=== PATIENT | female | born 1950 | race Caucasian/White ===

== ENCOUNTER 2017-12-02 06:07 | Day surgery (SDC) | payer BC, MEDICARE ==
[~2017-12-02] VITALS: Ht 167.6 cm; Wt 93.2 kg
[~2017-12-02 06:07] MED LIST: ADVAIR; ALBIPROI; ALEN70; ASPI81EC; BUPR150ER; BUPR150T2 PO; CALMAGZIN; CARI350 PO; CHRO200 PO; CLARITIN; COMBIVENT RESPIM4 GM INH; CRUTCH2 USE; DULO30; DULO60 PO; FISH OIL + D31 EACH PO; FLUSAL2505; FLUT.05NI; GLUCHON; GLUCHON PO; Glucosamine-Ch480 ML PO; Hair, Skin & N1 EACH PO; IBUP400 PO; IRON150C PO; KETAPROFEN; KETO200ER; LORA10 PO; LORA10ER; LORPSEER24 PO; MONT10T; MONT10T PO; MSM; MSM1000; MULVITMIND; Norco 10-325 T1 EACH; OMEP20ER; OMEP40CA12 PO; OMEPRAZOLE MAGN20 MG PO; PREG100 PO; PRILOSEC; PROACE100 PO; RALO60 PO; SINGULAIR; SUMA25; SUMA25 PO; SUMA6I; SUMA6I SC; TOCO400; VITAMIN D34000 UNIT PO; ZOLP5; ZOLP5 PO; [UNRECOGNIZED DRUG - OTHER]; [UNRECOGNIZED DRUG - OTHER]
[2018-08-16] MEDS ORDERED: BUPR150ER PO (09:18)
[2018-08-16] MEDS ORDERED: SITA100T2 PO (09:19)
[2018-08-16] MEDS ORDERED: RALO60 PO (09:19)
[2018-08-16] MEDS ORDERED: NAPR220 PO (09:20)
[2018-08-16] MEDS ORDERED: VAGIFEM10 MCG VAG (09:20)
[2018-08-16] MEDS ORDERED: ATOR40TA PO (09:20)
[2018-08-16] MEDS ORDERED: Norco 10-325 T1 EACH PO (09:21)
[2018-08-16] MEDS ORDERED: HYOS.125 PO (09:22)
== END 2017-12-02 09:43 | disposition home or self-care (01) ==
LOC: ORSCSDS 06:07
PROVIDERS: Orthopaedic Surgery
PROC: 0SBD4ZZ Excision of Left Knee Joint, Percutaneous Endoscopic Approach (ICD-10-PCS; principal; 2017-12-02 07:30)
DX: S83.242A Other tear of medial meniscus, current injury, left knee, initial encounter (principal); M71.22 Synovial cyst of popliteal space [Baker], left knee; E11.9 Type 2 diabetes mellitus without complications; I10 Essential (primary) hypertension; E78.5 Hyperlipidemia, unspecified; G47.33 Obstructive sleep apnea (adult) (pediatric); Z79.899 Other long term (current) drug therapy
CPT/HCPCS: J0171; J2250; J2405; J3010; J3370; J7050; J7120

== ENCOUNTER → 2017-12-27 | Outpatient (CLI) | payer OTHER, BC, MEDICARE ==
[~2017-12-27] MED LIST changes: +ASPI325EC PO; +ATOR20 PO; +ATOR40TA PO; +BUPR150ER PO; +HYOS.125 PO; +HYOS0.375T PO; +NAPR220 PO; +Norco 10-325 T1 EACH PO; +Percocet 5-3251 EACH PO; +SITA100T2 PO; +SOMA350 MG PO; +UBID10 PO; +VAGIFEM10 MCG VAG
[2017-12-28 05:33] LABS: HCV Non Reactive (NR)
== END | disposition home or self-care (01) ==
LOC: LAB EV 09:13
PROVIDERS: Physician Assistant
DX: Z20.9 Contact with and (suspected) exposure to unspecified communicable disease (principal)
CPT/HCPCS: 84460; 86706; 86803; 87340; 87389

== ENCOUNTER 2018-08-29 08:28 | Day surgery (SDC) | payer BC, MEDICARE ==
[~2018-08-29] VITALS: Ht 162.6 cm; Wt 97.1 kg
[~2018-08-29 08:28] MED LIST changes: -ASPI325EC PO; -ATOR20 PO; -HYOS0.375T PO; -Percocet 5-3251 EACH PO; -SOMA350 MG PO; -UBID10 PO
[2018-08-29] MEDS ORDERED: UBID10 PO (14:39)
[2018-08-29] MEDS ORDERED: HYOS0.375T PO (14:41)
[2018-08-29] MEDS ORDERED: ATOR20 PO (14:42)
[2018-08-29] MEDS ORDERED: SOMA350 MG PO (14:44)
[2018-08-30 05:25] LABS: BASOPHILS ABSOLUTE AUTO 0.04 K/mm3 (0.00-0.23); BASOPHILS PERCENT AUTO 0 % (0-2); EOSINOPHILS ABSOLUTE AUTO 0.13 K/mm3 (0.00-0.68); EOSINOPHILS PERCENT AUTO 1 % (0-6); Hematocrit 36.2 % (33.0-51.0); Hemoglobin 11.7 g/dL (11.5-16.0); IMMATURE GRAN ABSOLUTE AUTO 0.05 K/mm3 (0.00-0.10); IMMATURE GRAN PERCENT AUTO 1 % (0-1); LYMPHOCYTES ABSOLUTE AUTO 1.34 K/mm3 (0.84-5.20); LYMPHOCYTES PERCENT AUTO 14 % (21-46); MONOCYTES ABSOLUTE AUTO 1.04 K/mm3 (0.16-1.47); MONOCYTES PERCENT AUTO 11 % (4-13); Mean Corpuscular HGB 29.9 pg (26.0-34.0); Mean Corpuscular HGB Conc 32.3 g/dL (31.5-36.5); Mean Corpuscular Volume 93 fL (80-100); Mean Platelet Volume 9.5 fL (9.1-12.4); NEUTROPHILS ABSOLUTE AUTO 7.26 K/mm3 (1.96-9.15); NEUTROPHILS PERCENT AUTO 74 % (41-73); Platelet Count 231 K/mm3 (150-400); Red Blood Cell Count 3.91 M/mm3 (3.80-5.20); White Blood Cell Count 9.86 K/mm3 (4.00-11.30)
[2018-08-30 05:49] LABS: Anion Gap 8 mmol/L (6-16); Blood Urea Nitrogen 17 mg/dL (8-24); Bun/Creatinine Ratio 22.2 (12.0-20.0); CO2, Blood 25 mmol/L (21-32); Calcium, Blood 8.4 mg/dL (8.5-10.1); Chloride, Blood 107 mmol/L (98-108); Creatinine, Blood 0.77 mg/dL (0.40-1.00); Glomerular Filtration Rate >60 (60-); Glucose, Blood 166 mg/dL (70-99); Potassium, Blood 4.1 mmol/L (3.5-5.5); Sodium, Blood 140 mmol/L (136-145)
[2018-08-31 08:22] LABS: Hematocrit 34.9 % (33.0-51.0); Hemoglobin 10.9 g/dL (11.5-16.0)
[2018-08-31] MEDS ORDERED: ASPI325EC PO (11:22)
[2018-08-31] MEDS ORDERED: Percocet 5-3251 EACH PO (11:22)
== END 2018-08-31 11:41 | disposition home or self-care (01) ==
LOC: ORSCMMR 08:28 → SURS 13:19 → ORSCMMR 08-31 11:41
PROVIDERS: Orthopaedic Surgery; Physician Assistant Surgical
PROC: 0SRD0JA Replacement of Left Knee Joint with Synthetic Substitute, Uncemented, Open Approach (ICD-10-PCS; principal; 2018-08-29 10:00)
DX: M17.12 Unilateral primary osteoarthritis, left knee (principal); E11.9 Type 2 diabetes mellitus without complications; J45.909 Unspecified asthma, uncomplicated; G47.33 Obstructive sleep apnea (adult) (pediatric); E66.01 Morbid (severe) obesity due to excess calories; Z68.36 Body mass index [BMI] 36.0-36.9, adult; Z79.899 Other long term (current) drug therapy
CPT/HCPCS: 36415; 73560-LT; 80048; 82947; 85014; 85018; 85025; 86850; 86900; 86901; 88300; 94760; 97110; 97116; 97162; 97530; A9270; C1776; G8978; G8979; J0171; J0735; J1170; J1885; J2250; J2370; J2405; J2795; J3010; J7120

== ENCOUNTER → 2019-04-12 | Outpatient (CLI) | payer BC, MEDICARE ==
[~2019-04-12] MED LIST changes: +ASPI325EC PO; +ATOR20 PO; +HYOS0.375T PO; +Percocet 5-3251 EACH PO; +SOMA350 MG PO; +UBID10 PO
[2019-04-12 15:33] LABS: Stool Occult Bld Immuno 1 Negative (NEGATIVE)
== END | disposition home or self-care (01) ==
LOC: LAB 12:09 → LAB SHORT 12:09
PROVIDERS: Internal Medicine Gastroenterology
DX: K57.30 Diverticulosis of large intestine without perforation or abscess without bleeding (principal); Z86.010 Personal history of colon polyps
CPT/HCPCS: 82274

== ENCOUNTER → 2019-04-14 | Outpatient (CLI) | payer BC, MEDICARE ==
[2019-04-18 14:09] LABS: Stool Occult Bld Immuno 1 Positive (NEGATIVE)
== END | disposition home or self-care (01) ==
LOC: LAB 08:28 → LAB SHORT 08:28 → LAB FUT 04-03 14:05
PROVIDERS: Internal Medicine Gastroenterology
DX: K57.30 Diverticulosis of large intestine without perforation or abscess without bleeding (principal); Z86.010 Personal history of colon polyps
CPT/HCPCS: 82274

== ENCOUNTER 2019-05-16 11:35 | Day surgery (SDC) | payer MEDICARE ==
[~2019-05-16] VITALS: Ht 165.1 cm; Wt 92.2 kg
[~2019-05-16 11:35] MED LIST changes: +Budeprion Xl300 MG PO; +Coq-10100 MG PO; +Imitrex50 MG PO; +Norco 5-325 Ta1 EACH; +Prinivil10 MG PO; +TRULICITY0.75 MG/0. SC; +VIT1CAPS12 PO; +[UNRECOGNIZED DRUG - OTHER] PO
== END 2019-05-16 14:20 | disposition home or self-care (01) ==
LOC: ORSCSDS 11:35
PROVIDERS: Internal Medicine Gastroenterology
PROC: 0DBH8ZX Excision of Cecum, Via Natural or Artificial Opening Endoscopic, Diagnostic (ICD-10-PCS; principal; 2019-05-16 13:00)
PROC: 0DBC8ZX Excision of Ileocecal Valve, Via Natural or Artificial Opening Endoscopic, Diagnostic (ICD-10-PCS; principal; 2019-05-16 13:00)
PROC: 0DBP8ZX Excision of Rectum, Via Natural or Artificial Opening Endoscopic, Diagnostic (ICD-10-PCS; principal; 2019-05-16 13:00)
DX: R19.5 Other fecal abnormalities (principal); K57.30 Diverticulosis of large intestine without perforation or abscess without bleeding; D12.0 Benign neoplasm of cecum; D12.8 Benign neoplasm of rectum; K63.3 Ulcer of intestine; Z86.010 Personal history of colon polyps; I10 Essential (primary) hypertension; G47.33 Obstructive sleep apnea (adult) (pediatric); J45.909 Unspecified asthma, uncomplicated; E11.9 Type 2 diabetes mellitus without complications; E66.9 Obesity, unspecified; Z68.33 Body mass index [BMI] 33.0-33.9, adult; F32.9 Major depressive disorder, single episode, unspecified; Z79.899 Other long term (current) drug therapy
CPT/HCPCS: 82947; 88305; J2405; J2704; J7120

== ENCOUNTER 2020-03-17 14:47 | Emergency (ER) | payer MEDICARE ==
[~2020-03-17] VITALS: Ht 167.6 cm; Wt 96.6 kg
== END 2020-03-17 17:05 | disposition home or self-care (01) ==
LOC: ER 14:47
DX: S52.572A Other intraarticular fracture of lower end of left radius, initial encounter for closed fracture (principal); S52.615A Nondisplaced fracture of left ulna styloid process, initial encounter for closed fracture; J45.909 Unspecified asthma, uncomplicated; G43.909 Migraine, unspecified, not intractable, without status migrainosus; Z88.0 Allergy status to penicillin; Z88.8 Allergy status to other drugs, medicaments and biological substances; Z88.5 Allergy status to narcotic agent; Z88.1 Allergy status to other antibiotic agents; Z91.048 Other nonmedicinal substance allergy status; Z79.899 Other long term (current) drug therapy; W01.0XXA Fall on same level from slipping, tripping and stumbling without subsequent striking against object, initial encounter
CPT/HCPCS: 29105; 71046; 73110; 73120; 99283-25; A9270-GY

== ENCOUNTER 2020-03-21 10:34 | Day surgery (SDC) | payer MEDICARE ==
--- NOTE | 2020-03-21 11:47 | NUR ---
ASSUMED CARE OF PATIENT RECIEVED REPORT FROM [facility]
--- NOTE | 2020-03-21 12:26 | NUR ---
PT'S GLASSES PLACED IN PLASTIC BAG WITH STICKER AND TAKEN TO PACU.
--- NOTE | 2020-03-21 17:07 | NUR ---
1447 TO [facility] FROM PACU, SLEEPY. ON 2L N/C. VSS. LEFT WRIST MICHELL WRAP INTACT. LEFT FINGERS WARM. GOOD CIRCULATION AND WIGGLES FINGERS WELL.PO FLUIDS GIVEN, KYUNG H2O. C/O LEFT WRIST PAIN 910.ENCOURAGED TO SIP SOME WATER AND EAT CRACKERS THEN RECOMMEND PO PAIN MED. PATIENT IN AGREEMENT.PT DOSING INBETWEEN SIPS. ENCOURAGE DB AND NIBBLE CRACKERS. LEFT ARM ELEVATED ON PILLOW WITH ICE PACK IN PLACE 1525 PO PAIN PILL GIVEN.AMBULATE TO BATHROOM STEADY ON FEET. 1530 BACK TO BED SATS 94% ON ROOM AIR 1533 O2@2L N/C REPLACED SATS DROPPED TO 89-90% 1600 PAIN 9/ IV FENTANYL GIVEN. 1630 PO PAIN PILL GIVEN PAIN /. 1700 PT STATES FEELING BETTER. AMBULATE TO BATHROOM. CHANGED INTO STREET CLOTHES. CALLED TO COME GET PATIENT. DC INSTRUCTS PREVIOUSLY GIVEN. PATIENT VERBALIZE UNDERSTANDING 1725SITTING IN CHAIR.PT ON ROOM AIR SATS 92-93%
== END 2020-03-21 17:35 | disposition home or self-care (01) ==
LOC: ORSCMMR 10:34 → ORD 16:15 → ORSCMMR 17:35
PROVIDERS: Orthopaedic Surgery
PROC: 0PSJ04Z Reposition Left Radius with Internal Fixation Device, Open Approach (ICD-10-PCS; principal; 2020-03-21 12:15)
DX: S52.572A Other intraarticular fracture of lower end of left radius, initial encounter for closed fracture (principal); I10 Essential (primary) hypertension; E78.5 Hyperlipidemia, unspecified; G47.33 Obstructive sleep apnea (adult) (pediatric); E11.9 Type 2 diabetes mellitus without complications; J45.909 Unspecified asthma, uncomplicated; E66.01 Morbid (severe) obesity due to excess calories; Z68.35 Body mass index [BMI] 35.0-35.9, adult; Z79.899 Other long term (current) drug therapy
CPT/HCPCS: 73100; 82947; C1713; J1100; J2250; J2405; J2704; J3010; J3370; J7120

== ENCOUNTER → 2020-07-22 | Outpatient (CLI) | payer MEDICARE | END | disposition home or self-care (01) | LOC: LAB SHORT 11:24 → PLD 11:24 | DX: D22.39 Melanocytic nevi of other parts of face (principal) | CPT/HCPCS: 88305 ==

== ENCOUNTER 2021-06-26 15:17 | Inpatient (IN) | payer MEDICARE ==
[~2021-06-26] VITALS: Ht 165.1 cm; Wt 86.6 kg
[~2021-06-26 15:17] MED LIST changes: +ALLERCLEAR10 MG PO; -LORA10 PO; -TRULICITY0.75 MG/0. SC; +TRULICITY0.75 MG/01
[2021-06-26] MEDS ORDERED: BREO ELLIPTA 11 EAC1 INH (15:51)
[2021-06-26 16:42] LABS: BASOPHILS ABSOLUTE AUTO 0.09 K/mm3 (0.00-0.23); BASOPHILS PERCENT AUTO 1 % (0-2); EOSINOPHILS ABSOLUTE AUTO 0.03 K/mm3 (0.00-0.68); EOSINOPHILS PERCENT AUTO 0 % (0-6); Hematocrit 43.7 % (33.0-51.0); Hemoglobin 13.3 g/dL (11.5-16.0); IMMATURE GRAN ABSOLUTE AUTO 0.27 K/mm3 (0.00-0.10); IMMATURE GRAN PERCENT AUTO 2 % (0-1); LYMPHOCYTES ABSOLUTE AUTO 2.31 K/mm3 (0.84-5.20); LYMPHOCYTES PERCENT AUTO 14 % (21-46); MONOCYTES ABSOLUTE AUTO 1.01 K/mm3 (0.16-1.47); MONOCYTES PERCENT AUTO 6 % (4-13); Mean Corpuscular HGB 22.9 pg (26.0-34.0); Mean Corpuscular HGB Conc 30.4 g/dL (31.5-36.5); Mean Corpuscular Volume 75 fL (80-100); NEUTROPHILS ABSOLUTE AUTO 12.62 K/mm3 (1.96-9.15); NEUTROPHILS PERCENT AUTO 77 % (41-73); Platelet Count 599 K/mm3 (150-400); RDW Coefficient Variation 19.5 % (11.7-14.2); RDW Standard Deviation 50.3 fL (35.1-46.3); Red Blood Cell Count 5.81 M/mm3 (3.80-5.20); White Blood Cell Count 16.33 K/mm3 (4.00-11.30)
[2021-06-26 16:55] LABS: Anion Gap 10 mmol/L (6-16); Blood Urea Nitrogen 25 mg/dL (8-24); Bun/Creatinine Ratio 28.7 (12.0-20.0); CO2, Blood 19 mmol/L (21-32); Calcium, Blood 9.5 mg/dL (8.5-10.1); Chloride, Blood 108 mmol/L (98-108); Creatinine, Blood 0.87 mg/dL (0.40-1.00); Glomerular Filtration Rate >60 (60-); Glucose, Blood 183 mg/dL (70-99); Potassium, Blood 4.5 mmol/L (3.5-5.5); Sodium, Blood 137 mmol/L (136-145)
[2021-06-26] MEDS ORDERED: METF500C PO (17:28)
[2021-06-26] MEDS ORDERED: FLONASE ALLERG9.9 ML (21:08)
--- NOTE | 2021-06-27 05:09 | NUR ---
SHIFT SUMMARY PT NEW ED ADMIT THIS EVENING. PT REPORTS FEELING MUCH BETTER COMPARED TO WHEN SHE CAME INTO THE ED. PT REMAINED ON 2 L VIA NC WHILE AWAKE AND USED HER HOME CPAP WITH 2 L BLEED IN WHILE SLEEPING. O2 SATS IN THE LOW TO MID 90'S. SOME SOB W/ EXERTION BUT PT RECOVERS WELL. LUNG SOUNDS DIMINISHED THROUGHOUT. A LITTLE TIGHT SOUNDING. PT SLEPT OFF AND ON. SOLUMEDROL Q 4 PER ORDERS. PT INITIALLY TACHYCARDIC IN THE LOW 100'S-110'S. DECREASING TO THE 90'S THIS AM. VITAL SIGNS REMAINED STABLE. PT HAD A MOSTLY UNEVENTFUL NIGHT. WILL CONTINUE TO MONITOR.
[2021-06-27 05:46] LABS: BASOPHILS ABSOLUTE AUTO 0.03 K/mm3 (0.00-0.23); BASOPHILS PERCENT AUTO 0 % (0-2); EOSINOPHILS PERCENT AUTO 0 % (0-6); Hematocrit 38.5 % (33.0-51.0); Hemoglobin 11.8 g/dL (11.5-16.0); IMMATURE GRAN ABSOLUTE AUTO 0.37 K/mm3 (0.00-0.10); IMMATURE GRAN PERCENT AUTO 2 % (0-1); LYMPHOCYTES ABSOLUTE AUTO 1.74 K/mm3 (0.84-5.20); LYMPHOCYTES PERCENT AUTO 11 % (21-46); MONOCYTES PERCENT AUTO 1 % (4-13); Mean Corpuscular HGB 23.2 pg (26.0-34.0); Mean Corpuscular HGB Conc 30.6 g/dL (31.5-36.5); Mean Corpuscular Volume 76 fL (80-100); Mean Platelet Volume 9.1 fL (9.1-12.4); NEUTROPHILS ABSOLUTE AUTO 14.25 K/mm3 (1.96-9.15); NEUTROPHILS PERCENT AUTO 86 % (41-73); Platelet Count 494 K/mm3 (150-400); RDW Standard Deviation 50.1 fL (35.1-46.3); Red Blood Cell Count 5.08 M/mm3 (3.80-5.20); White Blood Cell Count 16.59 K/mm3 (4.00-11.30)
[2021-06-27 06:05] LABS: Anion Gap 8 mmol/L (6-16); Blood Urea Nitrogen 24 mg/dL (8-24); Bun/Creatinine Ratio 27.3 (12.0-20.0); CO2, Blood 21 mmol/L (21-32); Calcium, Blood 9.4 mg/dL (8.5-10.1); Chloride, Blood 105 mmol/L (98-108); Creatinine, Blood 0.88 mg/dL (0.40-1.00); Glomerular Filtration Rate >60 (60-); Glucose, Blood 216 mg/dL (70-99); Potassium, Blood 4.8 mmol/L (3.5-5.5); Sodium, Blood 134 mmol/L (136-145)
--- NOTE | 2021-06-27 17:08 | NUR ---
SHIFT SUMMARY- PT IS A/O, PLESANT AND COOPERATIVE. SHE IS EATING AND DRINKING WELL. TITRATED TO ROOM AIR. SHE IS WORKING WITH RT AND RECIEVING BREATHING TREATMENTS. SHE AMBULATED IN THE [place] THIS SHIFT AND TOLERATED WELL. HER BLOOD SUGARS HAVE BEEN ELEVATED AND HAVE REQUIRED COVERAGE. HER BED IS IN THE LOW POSITION AND CALL LIGHT IS WITHIN REACH.
--- NOTE | 2021-06-28 05:07 | NUR ---
SHIFT SUMMARY PT REMAINED ON THE 2 L, FIRST VIA NC AND THEN VIA CPAP ONCE GOING TO SLEEP. O2 SATS IN THE LOW TO MID 90'S. O2 SATS DROPPED DOWN IN TO THE 80'S ONCE WHILE PT WAS UP AND RUMMAGING THROUGH BELONGINGS. PT DENIES ANY CP BUT DOES REPORT THAT LUNGS FEEL "TIGHT". LUNG SOUNDS ARE DIMINISHED THROUGHOUT. PT REPORTS THAT SHE HAD A DIFFICULT DAY AND REQUESTED ORDERED ATIVAN BEFORE BEDTIME. PT SLEPT WELL MOST OF THE NIGHT AFTER NIGHT TIME MEDICATIONS. VITAL SIGNS STABLE. WILL CONTINUE TO MONITOR.
[2021-06-28] MEDS ORDERED: APHEN325 M1 PO (11:21)
[2021-06-28] MEDS ORDERED: HUMALOG KW100 UNIT/1 SC (11:23)
[2021-06-28] MEDS ORDERED: MEDROL4 M2 PO (11:26)
--- NOTE | 2021-06-28 13:15 | NUR ---
PT DISCHARGED FROM THE UNIT. IV REMOVED. DISCHARGE INSTRUCTIONS REVIEWED. MEDICATIONS FAXED TO PHARMACY. EDUCATION ON NEW MEDICATION AND SS INSULIN PROVIDED. PT LEFT UNIT VIA WHEEL CHAIR WITH
== END 2021-06-28 13:12 | disposition home or self-care (01) | DRG 189 ==
LOC: ER 15:17 → MEDS 15:18
PROVIDERS: Family Medicine; Student in an Organized Health Care Education/Training Program; ADMIT Internal Medicine
DX: J96.01 Acute respiratory failure with hypoxia (principal); J45.901 Unspecified asthma with (acute) exacerbation; E11.21 Type 2 diabetes mellitus with diabetic nephropathy; E11.40 Type 2 diabetes mellitus with diabetic neuropathy, unspecified; G47.00 Insomnia, unspecified; K21.9 Gastro-esophageal reflux disease without esophagitis; G89.29 Other chronic pain; G47.33 Obstructive sleep apnea (adult) (pediatric); F43.23 Adjustment disorder with mixed anxiety and depressed mood; K58.9 Irritable bowel syndrome, unspecified; E78.5 Hyperlipidemia, unspecified; Z96.652 Presence of left artificial knee joint; Z90.49 Acquired absence of other specified parts of digestive tract; Z90.89 Acquired absence of other organs; Z98.84 Bariatric surgery status; Z98.890 Other specified postprocedural states; Z88.0 Allergy status to penicillin; Z88.1 Allergy status to other antibiotic agents; Z88.8 Allergy status to other drugs, medicaments and biological substances; Z79.899 Other long term (current) drug therapy
CPT/HCPCS: 36415; 71045; 71260; 80048; 82947; 84145; 85025; 85379; 92610; 93005; 93010; 94640; 94644; 94762; 96372; 96374; 96376; 99285-25; A9270; G0378; J1650; J2920; J2930; Q9967

== ENCOUNTER → 2022-08-05 | Outpatient (CLI) | payer MEDICARE, OTHER ==
[~2022-08-05] MED LIST changes: +APHEN325 M1 PO; +BREO ELLIPTA 11 EAC1 INH; +FLONASE ALLERG9.9 ML; +HUMALOG KW100 UNIT/1 SC; +MEDROL4 M2 PO; +METF500C PO
[2022-08-05 15:41] LABS: Adenovirus F 40/41 Not Detected (NOT DETECT); Astrovirus Not Detected (NOT DETECT); Campylobacter Sp Not Detected (NOT DETECT); Cryptosporidium Not Detected (NOT DETECT); Cyclospora Cayetanensis Not Detected (NOT DETECT); E. Coli O157 Not Detected (NOT DETECT); Entamoeba Histolytica Not Detected (NOT DETECT); Enteroaggregative E. coli-EAEC Not Detected (NOT DETECT); Enteropathogenic E. coli-EPEC Not Detected (NOT DETECT); Enterotoxigenic E. coli-ETEC Not Detected (NOT DETECT); Giardia Lamblia Not Detected (NOT DETECT); Norovirus GI/GII Not Detected (NOT DETECT); Plesiomonas Shigelloides Not Detected (NOT DETECT); Rotavirus A Not Detected (NOT DETECT); Salmonella Sp Not Detected (NOT DETECT); Sapovirus Not Detected (NOT DETECT); Shiga Toxin-prod E. coli-STEC Not Detected (NOT DETECT); Shigella/Enteroin E. coli-EIEC Not Detected (NOT DETECT); Vibrio Cholerae Not Detected (NOT DETECT); Vibrio Sp Not Detected (NOT DETECT); Yersinia Enterocolitica Not Detected (NOT DETECT)
== END | disposition home or self-care (01) ==
LOC: LAB SHORT 12:43
PROVIDERS: Family Medicine
DX: R19.7 Diarrhea, unspecified (principal)
CPT/HCPCS: 87507

== ENCOUNTER 2023-08-08 14:08 | Inpatient (IN) | payer MEDICARE, OTHER ==
[~2023-08-08] VITALS: Ht 165.1 cm; Wt 92.3 kg
[~2023-08-08 14:08] MED LIST changes: +OMEP20ER PO; -OMEPRAZOLE MAGN20 MG PO; +PRESERVISION L1 EAC2 PO; -VIT1CAPS12 PO; +VITAMIN D33000 UNIT PO; -VITAMIN D34000 UNIT PO
[2023-08-08 15:00] LABS: BASOPHILS ABSOLUTE AUTO 0.05 K/mm3 (0.00-0.23); BASOPHILS PERCENT AUTO 1 % (0-2); EOSINOPHILS ABSOLUTE AUTO 0.14 K/mm3 (0.00-0.68); EOSINOPHILS PERCENT AUTO 2 % (0-6); Hematocrit 36.7 % (33.0-51.0); Hemoglobin 11.7 g/dL (11.5-16.0); IMMATURE GRAN ABSOLUTE AUTO 0.05 K/mm3 (0.00-0.10); IMMATURE GRAN PERCENT AUTO 1 % (0-1); LYMPHOCYTES ABSOLUTE AUTO 1.79 K/mm3 (0.84-5.20); LYMPHOCYTES PERCENT AUTO 21 % (21-46); MONOCYTES ABSOLUTE AUTO 0.83 K/mm3 (0.16-1.47); MONOCYTES PERCENT AUTO 10 % (4-13); Mean Corpuscular HGB 25.9 pg (26.0-34.0); Mean Corpuscular HGB Conc 31.9 g/dL (31.5-36.5); Mean Corpuscular Volume 81 fL (80-100); Mean Platelet Volume 9.4 fL (9.1-12.4); NEUTROPHILS ABSOLUTE AUTO 5.85 K/mm3 (1.96-9.15); NEUTROPHILS PERCENT AUTO 67 % (41-73); Platelet Count 278 K/mm3 (150-400); RDW Coefficient Variation 16.9 % (11.7-14.2); RDW Standard Deviation 49.8 fL (35.1-46.3); Red Blood Cell Count 4.52 M/mm3 (3.80-5.20); White Blood Cell Count 8.71 K/mm3 (4.00-11.30)
[2023-08-08 15:17] LABS: Albumin, Blood 3.4 g/dL (3.4-5.0); Albumin/Globulin Ratio 1.1 (0.8-1.8); Bilirubin, Total 0.3 mg/dL (0.1-1.0); Bun/Creatinine Ratio 19.8 (12.0-20.0); Creatinine, Blood 0.76 mg/dL (0.40-1.00); Globulin, Blood 3.2 g/dL (2.2-4.0); Potassium, Blood 3.9 mmol/L (3.5-5.5); Total Protein, Blood 6.6 g/dL (6.4-8.2)
[2023-08-08 15:36] LABS: International Normalized Ratio 0.97; Prothrombin Time Results 10.2 Sec (9.7-11.5)
[2023-08-08] MEDS ORDERED: HYDROCODONE-AC1 EA19 PO (17:44)
[2023-08-08 20:11] VITALS: BP 177/99
[2023-08-08] MEDS ORDERED: ATOR20 PO (21:01)
[2023-08-09 06:08] VITALS: BP 96/56
[2023-08-09 06:35] LABS: CHOL/HDL RATIO 3.6; Cholesterol 142 mg/dL (50-200); HDL Cholesterol 40 mg/dL (>39); LDL/HDL RATIO 1.7; Low Density Lipoprotein Chol 68 mg/dL (0-110); Triglycerides 168 mg/dL (30-160); Very Low Density Lipoprot Chol 33 mg/dL (6-32)
[2023-08-09 08:04] VITALS: BP 134/84
[2023-08-09] MEDS ORDERED: BREO ELLIPTA 21 EAC1 INH (09:32)
--- NOTE | 2023-08-09 12:28 | NUR ---
5990- TELEPHONE VERBAL FROM DR. HORAN TO PLACE ORDER FOR PT'S HOME MEDS BREO 1 INH BID AND VICTOZA INJECTION 1.8 UNITS DAILY.
[2023-08-09 15:09] VITALS: BP 135/91
--- NOTE | 2023-08-09 18:16 | NUR ---
SUMMARY- [id number] THIS SHIFT. DYSARTHRIA PRESENT THROUGHOUT SHIFT TODAY. PT IS INDEPENDENT IN ROOM.
--- NOTE | 2023-08-09 18:42 | NUR ---
PER NOT INTERFACED SHEET, RN CHANGED METFORMIN ORDER.
[2023-08-09 20:52] VITALS: BP 136/79
[2023-08-10 02:14] VITALS: BP 136/71
--- NOTE | 2023-08-10 04:25 | NUR ---
SHIFT SUMMARY PATIENT ALERT AND ORIENTED TO PERSON, PLACE, SITUAION, AND TIME. INDEPENDENT IN ROOM; GAIT IS STEADY. PATIENT DENIES CHEST PAIN/PRESSURE/PALPATIONS. SISTER IN AT BEDSIDE BEGINNING OF SHIFT. PATIENT REPORTS HABVING DIFFICULTY WITH SLEEP; MEDICATED PER EMAR. PATIENT APPLIED CPAP PRIOR TO SLEEP; APPEARED TO BE SLEEPING T/O MOST OF SHIFT WITH RESPIRATIONS EQUAL AND UNLABORED. BED IS LOCKED AND IN THE LOWEST POSITION, CALL LIGHT WITHIN REACH. PATIENT IS ABLE TO MAKE HER NEEDS KNOWN. NO S/S OF DISTRESS AT THIS TIME.
[2023-08-10 05:56] LABS: BASOPHILS ABSOLUTE AUTO 0.06 K/mm3 (0.00-0.23); BASOPHILS PERCENT AUTO 1 % (0-2); EOSINOPHILS ABSOLUTE AUTO 0.25 K/mm3 (0.00-0.68); EOSINOPHILS PERCENT AUTO 4 % (0-6); Hematocrit 35.9 % (33.0-51.0); Hemoglobin 11.2 g/dL (11.5-16.0); IMMATURE GRAN ABSOLUTE AUTO 0.04 K/mm3 (0.00-0.10); IMMATURE GRAN PERCENT AUTO 1 % (0-1); LYMPHOCYTES ABSOLUTE AUTO 2.23 K/mm3 (0.84-5.20); LYMPHOCYTES PERCENT AUTO 31 % (21-46); MONOCYTES ABSOLUTE AUTO 0.76 K/mm3 (0.16-1.47); MONOCYTES PERCENT AUTO 11 % (4-13); Mean Corpuscular HGB 25.5 pg (26.0-34.0); Mean Corpuscular HGB Conc 31.2 g/dL (31.5-36.5); Mean Corpuscular Volume 82 fL (80-100); Mean Platelet Volume 8.9 fL (9.1-12.4); NEUTROPHILS ABSOLUTE AUTO 3.83 K/mm3 (1.96-9.15); NEUTROPHILS PERCENT AUTO 53 % (41-73); Platelet Count 260 K/mm3 (150-400); RDW Coefficient Variation 16.9 % (11.7-14.2); RDW Standard Deviation 49.8 fL (35.1-46.3); White Blood Cell Count 7.17 K/mm3 (4.00-11.30)
[2023-08-10 06:24] LABS: Bun/Creatinine Ratio 25.1 (12.0-20.0); Creatinine, Blood 0.72 mg/dL (0.40-1.00); Potassium, Blood 3.8 mmol/L (3.5-5.5)
[2023-08-10 07:16] VITALS: BP 130/79
[2023-08-10] MEDS ORDERED: CLOP75 PO (13:03)
[2023-08-10] MEDS ORDERED: ASPI81CH PO (13:04)
--- NOTE | 2023-08-10 13:45 | NUR ---
No acute changes to patient status. Patient alert & oriented x4, steady gait ambulating well around unit. Plan to DC home today. Heart center RN placed zio patch and educated patient. Patient left unit at 1340.
== END 2023-08-10 13:41 | disposition home or self-care (01) | DRG 66 ==
LOC: ER 14:08 → MEDS 14:09 → ENPENDDIS 08-10 12:05 → MEDS 08-10 13:41
PROVIDERS: Internal Medicine; Student in an Organized Health Care Education/Training Program; ADMIT Hospitalist
DX: I63.512 Cerebral infarction due to unspecified occlusion or stenosis of left middle cerebral artery (principal); E11.65 Type 2 diabetes mellitus with hyperglycemia; E11.42 Type 2 diabetes mellitus with diabetic polyneuropathy; R47.01 Aphasia; R29.701 NIHSS score 1; J45.909 Unspecified asthma, uncomplicated; G43.909 Migraine, unspecified, not intractable, without status migrainosus; E66.9 Obesity, unspecified; I10 Essential (primary) hypertension; F32.A Depression, unspecified; E04.1 Nontoxic single thyroid nodule; K21.9 Gastro-esophageal reflux disease without esophagitis; K58.9 Irritable bowel syndrome, unspecified; K76.0 Fatty (change of) liver, not elsewhere classified; G47.33 Obstructive sleep apnea (adult) (pediatric); E78.5 Hyperlipidemia, unspecified; Z96.652 Presence of left artificial knee joint; Z90.49 Acquired absence of other specified parts of digestive tract; Z88.0 Allergy status to penicillin; Z88.1 Allergy status to other antibiotic agents; Z88.8 Allergy status to other drugs, medicaments and biological substances; Z79.899 Other long term (current) drug therapy; Z79.4 Long term (current) use of insulin; Z98.890 Other specified postprocedural states; Z98.84 Bariatric surgery status; Z90.89 Acquired absence of other organs; Z88.2 Allergy status to sulfonamides; Z79.891 Long term (current) use of opiate analgesic; Z68.33 Body mass index [BMI] 33.0-33.9, adult
CPT/HCPCS: 36415; 70450; 70496; 70498; 70551; 80048; 80053; 80061; 82947; 83036; 85025; 85610; 85730; 92523; 93005; 93010; 93246; 93306; 94660; 97161; 97530; 99285-25; A9270; G0378; J1650; J1815; Q9967

== ENCOUNTER 2025-07-03 16:55 | Emergency (ER) | payer MEDICARE, OTHER ==
[~2025-07-03] VITALS: Ht 165.1 cm; Wt 85.7 kg
[~2025-07-03 16:55] MED LIST changes: +ASPI81CH PO; +BREO ELLIPTA 21 EAC1 INH; +CLOP75 PO; +HYDROCODONE-AC1 EA19 PO
[2025-07-03 17:54] LABS: BASOPHILS ABSOLUTE AUTO 0.06 K/mm3 (0.00-0.23); BASOPHILS PERCENT AUTO 1 % (0-2); EOSINOPHILS ABSOLUTE AUTO 0.07 K/mm3 (0.00-0.68); EOSINOPHILS PERCENT AUTO 1 % (0-6); Hematocrit 42.8 % (33.0-51.0); Hemoglobin 14.4 g/dL (11.5-16.0); IMMATURE GRAN ABSOLUTE AUTO 0.04 K/mm3 (0.00-0.10); IMMATURE GRAN PERCENT AUTO 0 % (0-1); LYMPHOCYTES ABSOLUTE AUTO 2.17 K/mm3 (0.84-5.20); LYMPHOCYTES PERCENT AUTO 22 % (21-46); MONOCYTES ABSOLUTE AUTO 1.04 K/mm3 (0.16-1.47); MONOCYTES PERCENT AUTO 10 % (4-13); Mean Corpuscular HGB Conc 33.6 g/dL (31.5-36.5); Mean Corpuscular Volume 88 fL (80-100); NEUTROPHILS ABSOLUTE AUTO 6.72 K/mm3 (1.96-9.15); NEUTROPHILS PERCENT AUTO 67 % (41-73); NRBC ABSOLUTE 0.00 K/mm3 (0.00-0.02); NRBC Auto 0.0 /100 WBC (0.0-0.2); Platelet Count 250 K/mm3 (150-400); RDW Coefficient Variation 14.4 % (11.7-14.2); RDW Standard Deviation 46.9 fL (35.1-46.3)
[2025-07-03 18:48] LABS: Alanine Aminotransfer (ALT/SGP 74.0 U/L (12-78); Albumin, Blood 4.1 g/dL (3.4-5.0); Albumin/Globulin Ratio 1.4 (0.8-1.8); Anion Gap 6.0 mmol/L (3-11); Aspartate Aminotrans (AST/SGOT 37.0 U/L (12-37); Bilirubin, Total 0.6 mg/dL (0.1-1.0); Blood Urea Nitrogen 17.0 mg/dL (8-24); CO2, Blood 24.0 mmol/L (21-32); Calcium, Blood 9.6 mg/dL (8.5-10.1); Chloride, Blood 108.0 mmol/L (98-108); Creatinine, Blood 0.75 mg/dL (0.40-1.00); Globulin, Blood 3.0 g/dL (2.2-4.0); Glucose, Blood 110.0 mg/dL (70-99); Potassium, Blood 3.9 mmol/L (3.5-5.5); Sodium, Blood 134.0 mmol/L (136-145); Total Protein, Blood 7.1 g/dL (6.4-8.2)
[2025-07-03 19:48] LABS: Source, Urine Clean Catch
[2025-07-03 19:51] LABS: Bilirubin, Urine Neg (Neg); Glucose Qualitative, Urine Neg (Neg); Ketones, Urine 1+ (Neg); Leukocyte Esterase, Urine 2+ (Neg); Protein, Urine 1+ (Neg); Specific Gravity, Urine 1.010 (1.003-1.022); Urobilinogen, Urine NORM (Normal)
[2025-07-03] MEDS ORDERED: OZEMPIC2 MG/0.75 SQ (19:53)
[2025-07-03 19:56] LABS: Color, Urine Pale Yellow (P-Yellow)
[2025-07-03 19:58] LABS: Red Blood Cells, Urine 0-2 /hpf (0-2); White Blood Cells, Urine 25-50 /hpf (0-5)
[2025-07-03 21:00] VITALS: BP 119/61
[2025-07-03] MEDS ORDERED: [UNRECOGNIZED DRUG - CODE] PO (22:14)
== END 2025-07-03 22:03 | disposition home or self-care (01) ==
LOC: ER 16:55
PROVIDERS: Student in an Organized Health Care Education/Training Program
DX: R47.81 Slurred speech (principal); J45.909 Unspecified asthma, uncomplicated; E78.5 Hyperlipidemia, unspecified; E11.9 Type 2 diabetes mellitus without complications; I10 Essential (primary) hypertension; Z88.0 Allergy status to penicillin; Z88.1 Allergy status to other antibiotic agents; Z88.2 Allergy status to sulfonamides; Z88.8 Allergy status to other drugs, medicaments and biological substances; Z91.048 Other nonmedicinal substance allergy status; Z79.85 Long-term (current) use of injectable non-insulin antidiabetic drugs; Z79.4 Long term (current) use of insulin; Z79.899 Other long term (current) drug therapy; Z79.84 Long term (current) use of oral hypoglycemic drugs; Z79.82 Long term (current) use of aspirin; Z79.51 Long term (current) use of inhaled steroids; Z59.89 Other problems related to housing and economic circumstances
CPT/HCPCS: 70450; 80053; 81001; 82947; 83690; 84484; 85025; 87077; 87086; 87186; 93005; 93010; 93880; 99285-25